=== PATIENT | female | born 2000 | race Caucasian/White ===

== ENCOUNTER 2020-09-16 12:51 | Emergency (ER) | payer OTHER ==
[~2020-09-16 12:51] MED LIST: AMOXICILLIN500 MG PO; FLONASE ALLER15.8 ML; ZYRTEC10 M3 PO
[2020-09-16 15:01] LABS: CORONAVIRUS 2019 SARS-COV-2 NEGATIVE (NEGATIVE); INFLUENZA A NAA NEGATIVE (NEGATIVE)
[2020-09-16] MEDS ORDERED: ZPAK PO (16:01)
[2020-09-16] MEDS ORDERED: VENTOLIN HFA IN18 GM INH (16:01)
== END 2020-09-16 16:40 | disposition home or self-care (01) ==
LOC: FER 12:51
PROVIDERS: Emergency Medicine
DX: J06.9 Acute upper respiratory infection, unspecified (principal); Z20.822 Contact with and (suspected) exposure to COVID-19
CPT/HCPCS: 99283; J1100; U0002

== ENCOUNTER 2021-09-04 14:00 | Emergency (ER) | payer OTHER ==
[~2021-09-04] VITALS: Ht 157.5 cm; Wt 59.0 kg
[~2021-09-04 14:00] MED LIST changes: +VENTOLIN HFA IN18 GM INH; +ZPAK PO
[2021-09-04 15:49] LABS: CORONAVIRUS 2019 SARS-COV-2 NEGATIVE (NEGATIVE); INFLUENZA A NAA POSITIVE (NEGATIVE)
[2021-09-04] MEDS ORDERED: TAMIFLU 75MG CA75 MG PO (16:01)
== END 2021-09-04 16:57 | disposition home or self-care (01) ==
LOC: FER 14:00
PROVIDERS: Nurse Practitioner Family
DX: J10.1 Influenza due to other identified influenza virus with other respiratory manifestations (principal); Z20.822 Contact with and (suspected) exposure to COVID-19; Z28.310 Unvaccinated for COVID-19
CPT/HCPCS: 71046; U0002